=== PATIENT | male | born 1960 | race African-American/Black ===

== ENCOUNTER 2016-08-03 16:44 | Emergency (ER) | payer MEDICAID ==
[~2016-08-03] VITALS: Ht 177.8 cm; Wt 100.0 kg
[2016-08-03] MEDS ORDERED: HYDROCODONE/ACETAMINOPHEN 5-325 MG TABLET PO ONE (19:45)
[2016-08-03 20:02] VITALS: BP 124/88
== END 2016-08-03 20:39 | disposition home or self-care (01) ==
LOC: EMS 16:45
DX: S62.002A Unspecified fracture of navicular [scaphoid] bone of left wrist, initial encounter for closed fracture (principal); V18.4XXA Pedal cycle driver injured in noncollision transport accident in traffic accident, initial encounter; Y93.89 Activity, other specified; Y92.89 Other specified places as the place of occurrence of the external cause; Y99.8 Other external cause status
CPT/HCPCS: 99284

== ENCOUNTER 2016-08-17 05:47 | Emergency (ER) | payer MEDICAID ==
[~2016-08-17] VITALS: Ht 175.3 cm; Wt 100.0 kg
[2016-08-17 08:28] VITALS: BP 126/73
== END 2016-08-17 08:45 | disposition home or self-care (01) ==
LOC: EMS 05:48
DX: S62.002D Unspecified fracture of navicular [scaphoid] bone of left wrist, subsequent encounter for fracture with routine healing (principal); F32.9 Major depressive disorder, single episode, unspecified; X58.XXXD Exposure to other specified factors, subsequent encounter
CPT/HCPCS: 99283